=== PATIENT | female | born 1955 | race Caucasian/White ===

== ENCOUNTER 2017-01-26 09:30 | Emergency (ER) | payer OTHER ==
[~2017-01-26] VITALS: Ht 170.2 cm; Wt 63.5 kg
[~2017-01-26 09:30] MED LIST: LANS15TA4 PO; OMEP20TA68 PO; VENL75CA56 PO; [UNRECOGNIZED DRUG - OTHER] PO
[2017-01-26 09:35] VITALS: BP 131/84
--- NOTE | 2017-01-26 09:51 | NUR ---
PER PATIENT DOES NOT WANT TO BE SEEN ANYMORE, PT STATES FEELING RELIEF AND DENIES CHEST PAIN AT THIS TIME. DR LOYD AWARE. PT MADE AWARE RISKS AND CONSEQUENCES FOR LEAVING BEFORE SEEING MD. PT VERBALIZED UNDERSTANDING AND LEFT VIA PRIVATE CAR. AMBULATORY WITH STEADY GAIT. VSS.
== END 2017-01-26 10:02 | disposition left against medical advice (07) ==
LOC: ER 09:31
DX: Z53.21 Procedure and treatment not carried out due to patient leaving prior to being seen by health care provider (principal)

== ENCOUNTER 2017-02-23 17:23 | Inpatient (IN) | payer OTHER ==
[~2017-02-23] VITALS: Ht 170.2 cm; Wt 66.7 kg
--- NOTE | 2017-02-23 17:45 | NUR ---
BIB SELF, CC: BILATERAL ABDOMINAL PAIN CRAMPING, S/P OVARIAN CYST REMOVAL LAST WEDNESDAY. ALSO REPORTS OF N/V AND ON AND OFF FEVER. VSS. PT [id number]. SEEN BY MD FOR EVAL. SAFETY AND COMFORT MEASURES PROVIDED. WILL MONITOR.
--- NOTE | 2017-02-23 18:20 | NUR ---
IV ACCESS STARTED. PT MEDICATED ORDERED.
[2017-02-23] MEDS ORDERED: IV SET PRIMARY 1 EA INFUS.SET MC ONE (18:22)
[2017-02-23] MEDS ORDERED: ONDANSETRON HCL/PF 4 MG/2 ML VIAL ONE (18:22)
[2017-02-23] MEDS ORDERED: IV NS 0.9% 1,000 ML ONE (18:22)
[2017-02-23] MEDS ORDERED: MORPHINE SULFATE INJ 4 MG/ML DISP.SYRIN ONE (18:22)
[2017-02-23 18:29] LABS: BASOPHILS # (AUTO) 0.1 /CMM (0.0-0.2); BASOPHILS % (AUTO) 0.5 % (0.0-2.0); EOSINOPHILS # (AUTO) 0.2 /CMM (0.0-0.7); EOSINOPHILS % (AUTO) 2.1 % (0.0-6.0); HEMATOCRIT 37 % (33-45); HEMOGLOBIN 12.5 g/dL (11.5-14.8); LYMPHOCYTES # (AUTO) 1.7 /CMM (0.8-4.8); LYMPHOCYTES % (AUTO) 14.7 % (20.0-44.0); MEAN CORPUSCULAR HEMOGLOBIN 32 PG (26.0-33.0); MEAN CORPUSCULAR HGB CONC 34 g/dl (31.0-36.0); MEAN CORPUSCULAR VOLUME 94 fL (82-100); MONOCYTES # (AUTO) 1.4 /CMM (0.1-1.30); MONOCYTES % (AUTO) 12.2 % (2.0-12.0); NEUTROPHILS % (AUTO) 70.5 % (43.0-81.0); PLATELET COUNT (AUTO) 258 /CMM (150-450); RDW COEFFICIENT OF VARIATION 12.2 (11.5-15.0); RED BLOOD CELL COUNT(AUTO) 3.97 MIL/uL (4.0-5.2); WHITE BLOOD COUNT (AUTO) 11.4 K/uL (4.3-11.0)
[2017-02-23] MEDS: MORPHINE SULFATE INJ 2 MG/ML DISP.SYRIN IV ONE ×2 (18:30→19:11)
[2017-02-23] MEDS ORDERED: PIPERACILLIN /TAZOBACTAM 3.375 G in IV D5W 50 ML IV ONE (18:30)
[2017-02-23] MEDS ORDERED: IV NS 0.9% 1,000 ML BAG IV ONE (18:30)
[2017-02-23] MEDS ORDERED: ONDANSETRON HCL/PF 4 MG/2 ML VIAL IVP ONE (18:30)
[2017-02-23] MEDS ORDERED: KETOROLAC TROMETHAMINE INJ 30 MG/ML VIAL ONE (18:35)
[2017-02-23 18:41] LABS: CALCIUM, SERUM 8.4 mg/dL (8.5-10.1); CREATININE 0.8 mg/dL (0.6-1.3); POTASSIUM 4.4 mmol/L (3.5-5.1)
--- NOTE | 2017-02-23 18:45 | NUR ---
PT TAKEN TO CT.
[2017-02-23 18:47] LABS: ALBUMIN 3.1 g/dL (3.4-5.0); BILIRUBIN,DIRECT 0.1 mg/dL (0.0-0.2); BILIRUBIN,TOTAL 0.6 mg/dL (0.2-1.0); TOTAL PROTEIN, SERUM 7.2 g/dL (6.4-8.2)
[2017-02-23] MEDS ORDERED: IV NS 0.9% 250 ML IV ONE (18:47)
[2017-02-23] MEDS ORDERED: IOHEXOL-300 100 ML VIAL IV ONE (18:47)
[2017-02-23] MEDS ORDERED: CT SWABBABLE VALVE TRANS SET 1 EA INFUS.SET MC ONE (18:47)
[2017-02-23 19:19] LABS: APPEARANCE,URINE Clear (CLEAR); BILIRUBIN,URINE Negative (NEGATIVE); BLOOD, URINE Trace-intact Ery/uL (NEGATIVE); COLOR,URINE Yellow (YELLOW); KETONES,URINE Negative (NEGATIVE); LEUKOCYTE ESTERASE ,URINE Negative (NEGATIVE); NITRITE, URINE Negative (NEGATIVE); PROTEIN,URINE Negative (NEGATIVE); UGLUCOSE Negative (NEGATIVE); UROBILINOGEN,URINE 0.2 EU/dL (0.2)
[2017-02-23 19:43] LABS: BACTERIA,URINE None seen /HPF (None Seen); MUCUS,URINE Few /LPF (None Seen); SQUAMOUS EPITHELIAL CELL,UR Few /HPF (None Seen); WBC,URINE NONE SEEN /HPF (0-3)
--- NOTE | 2017-02-23 19:43 | NUR ---
CALLED (BELL RINGER SURGEON), TRANSFERRED CALL TO DR. LUCAS
--- NOTE | 2017-02-23 20:00 | NUR ---
ITZEL YO, SARA TAFOYA NP GRANULATOR MACHINE OPERATOR
--- NOTE | 2017-02-23 20:00 | NUR ---
CALLED NURSING SUP. FOR [facility] BED
--- NOTE | 2017-02-23 20:05 | NUR ---
[facility] CALLED BACK, INFORMED ME BRAVO GARSIA MONITOR AND STORAGE BIN TENDER IS CHIEF RECORDIST
--- NOTE | 2017-02-23 21:01 | NUR ---
REPORT GIVEN TO DERRICK WORRELL FOR VIRGILIO
--- NOTE | 2017-02-23 21:05 | NUR ---
PT TRASNPORTED TO [facility] BED VIA WHEELCHAIR BY EMT
[2017-02-23 21:15] VITALS: BP 115/71
--- NOTE | 2017-02-23 21:30 | NUR ---
MS RN NOTE: RECEIVE PATIENT FROM ER, NO ACUTE DISTRESS NOTED. BREATHING EVEN AND UNLABORED, NO SOB NOTED. IV TO RFA IN PLACE. ORIENTED PATIENT TO ROOM AND USE OF CALL LIGHT. BED LOCKED AND IN LOWEST POSITION, CALL LIGHT IN REACH. WILL CONTINUE TO MONITOR.
[2017-02-23] MEDS ORDERED: IV NS 0.9% 1,000 ML IV PRN (21:46)
[2017-02-23] MEDS ORDERED: HYDROCODONE/APAP 5/325MG 1 EACH TABLET PO PRN (22:00)
[2017-02-23] MEDS ORDERED: Z GUARD REMEDY 2 OZ OINT TP PRN (22:00)
[2017-02-23] MEDS ORDERED: MORPHINE SULFATE INJ 2 MG/ML DISP.SYRIN IV PRN (22:00)
[2017-02-23] MEDS ORDERED: ZOLPIDEM TARTRATE 5 MG TABLET PO PRN (22:00)
[2017-02-23] MEDS ORDERED: ACETAMINOPHEN 325 MG TABLET PO PRN (22:00)
[2017-02-23] MEDS ORDERED: MAG HYDROX/AL HYDROX/SIMETH 30 ML UDC PO PRN (22:00)
[2017-02-23] MEDS ORDERED: ONDANSETRON HCL/PF 4 MG/2 ML VIAL IVP PRN (22:00)
[2017-02-23] MEDS ORDERED: MAGNESIUM HYDROXIDE 30 ML UDC PO PRN (22:00)
[2017-02-24] MEDS ORDERED: IV SET PRIMARY PUMP SET 1 EA INFUS.SET MC ONE (00:17)
[2017-02-24] MEDS ORDERED: SECONDARY IV SET 1 EA INFUS.SET MC ONE (00:17)
[2017-02-24] MEDS ORDERED: PIPERACILLIN /TAZOBACTAM 3.375 G VIAL IV ONE ×2 (00:17→06:35)
[2017-02-24] MEDS ORDERED: IV D5W 50 ML IV ONE ×2 (00:17→06:35)
[2017-02-24] MEDS ORDERED: IV NS 0.9% 1,000 ML ONE (00:18)
[2017-02-24] MEDS: PIPERACILLIN /TAZOBACTAM 3.375 G in IV D5W 50 ML IV SCH ×3 (00:29→11:43)
[2017-02-24] MEDS ORDERED: ACETAMINOPHEN 325 MG TABLET ONE (00:30)
--- NOTE | 2017-02-24 00:30 | NUR ---
MS RN NOTE: PATIENT SEEN BY DR. GORMAN, WITH NEW ORDERS TO CONTINUE SAME DOSE OF ZOSYN 3.375 GRAMS GIVEN IN ER. ORDER NOTED AND CARRIED OUT. WILL CONTINUE TO MONITOR.
[2017-02-24] MEDS ORDERED: EMTR1TAB17 PO (01:07)
[2017-02-24] MEDS ORDERED: DOLU50TA PO (01:07)
[2017-02-24] MEDS ORDERED: HYDROCODONE/APAP 5/325MG 1 EACH TABLET ONE (04:15)
--- NOTE | 2017-02-24 04:25 | NUR ---
MS RN NOTE: PATIENT COMPLAINS OF HEADACHE 6/10, NORCO 5/325MG ORAL GIVEN PER MD ORDER. WILL CONTINUE TO MONITOR.
--- NOTE | 2017-02-24 06:05 | NUR ---
MS RN NOTE: PATIENT RESTING IN BED, NO ACUTE DISTRESS NOTED. BREATHING EVEN AND UNLABORED, NO SOB NOTED. IV TO RFA IN PLACE, INFUSING NS AT 75 ML/HR. BED LOCKED AND IN LOWEST POSITION, CALL LIGHT IN REACH. WILL ENDORSE TO DAY NURSE TO CONTINUE WITH PLAN OF CARE.
[2017-02-24 06:13] LABS: BASOPHILS % (AUTO) 0.2 % (0.0-2.0); EOSINOPHILS # (AUTO) 0.3 /CMM (0.0-0.7); EOSINOPHILS % (AUTO) 3.5 % (0.0-6.0); HEMATOCRIT 34 % (33-45); HEMOGLOBIN 11.3 g/dL (11.5-14.8); LYMPHOCYTES % (AUTO) 11.1 % (20.0-44.0); MEAN CORPUSCULAR HEMOGLOBIN 31 PG (26.0-33.0); MEAN CORPUSCULAR HGB CONC 34 g/dl (31.0-36.0); MEAN CORPUSCULAR VOLUME 94 fL (82-100); MONOCYTES # (AUTO) 1.5 /CMM (0.1-1.30); MONOCYTES % (AUTO) 15.9 % (2.0-12.0); NEUTROPHILS # (AUTO) 6.5 /CMM (1.8-8.9); NEUTROPHILS % (AUTO) 69.3 % (43.0-81.0); PLATELET COUNT (AUTO) 243 /CMM (150-450); RDW COEFFICIENT OF VARIATION 13.3 (11.5-15.0); RED BLOOD CELL COUNT(AUTO) 3.59 MIL/uL (4.0-5.2); WHITE BLOOD COUNT (AUTO) 9.4 K/uL (4.3-11.0)
[2017-02-24 06:38] LABS: ALBUMIN 2.5 g/dL (3.4-5.0); BILIRUBIN,DIRECT 0.1 mg/dL (0.0-0.2); BILIRUBIN,TOTAL 0.4 mg/dL (0.2-1.0); CREATININE 0.8 mg/dL (0.6-1.3); MAGNESIUM 2.2 mg/dL (1.8-2.4); PHOSPHORUS 2.7 mg/dL (2.5-4.9); POTASSIUM 3.7 mmol/L (3.5-5.1); TOTAL PROTEIN, SERUM 6.1 g/dL (6.4-8.2)
[2017-02-24 06:54] LABS: EOSINOPHILS % (MANUAL) 4 % (0-4); LYMPHOCYTES % (MANUAL) 3 % (16-48); MONOCYTES % (MANUAL) 14 % (0-11.0); NEUTROPHILS % (MANUAL) 79 (42-76)
[2017-02-24] MEDS: PANTOPRAZOLE 40 MG TABLET.DR PO SCH ×2 (07:30→08:02)
--- NOTE | 2017-02-24 08:03 | NUR ---
RN NOTES PATIENT ASKS TO HAVE EFFEXOR LATER IN THE DAY AFTER LUNCH. WILL CALL PHARMACY AND ASK THEM TO RESCHEDULE THE MED. PATIENT ALSO HAS HOME MEDS AT BEDSIDE, BUT WILL NOT ALLOW TO HAVE THEM TAKEN TO THE PHARMACY. EXPLAINED THE POLICY OF HOME MEDICATIONS, PATIENT STATES UNDERSTANDING AND STATES SHE WILL HAVE HER DAUGHTER TAKE THE MEDICATIONS HOME LATER THAT SHE WILL NOT TAKE ANYTHING WITHOUT LETTING HOSPITAL STAFF KNOW.
[2017-02-24] MEDS ORDERED: VENLAFAXINE XR 75 MG CAP.SR.24H PO SCH ×2 (09:00→13:00)
[2017-02-24 09:34] VITALS: BP 129/74
--- NOTE | 2017-02-24 10:34 | NUR ---
RN NOTES CALLED DR HILL TO INFORM MD OF PATIENT VOMITING AND CT RESULTS. MD ORDERED PROTONIX IV, REGLAN PRN AND TO HAVE THE PATIENT START A CLEAR LIQUID DIET. ORDERS PLACED.
[2017-02-24] MEDS ORDERED: PANTOPRAZOLE 40 MG VIAL IV SCH (11:00)
[2017-02-24] MEDS ORDERED: METOCLOPRAMIDE HCL 10 MG/2 ML VIAL IV PRN (11:00)
--- NOTE | 2017-02-24 13:01 | NUR ---
MS RN NOTES PATIENT DOES NOT EFFEXOR AT THIS TIME. PATIENT STATES THAT SHE IS FEELING NAUSEOUS AND IS AFRAID SHE WILL THROW UP. WILL HOLD MED UNTIL PATIENT IS ABLE TO TAKE IT.
--- NOTE | 2017-02-24 15:33 | NUR ---
MS ANAID NOTES INFORMED DR ZAIDI THAT PATIENT TOLERATED LUNCH AND DOES NOT COMPLAIN OF NAUSEA AND HAS NOT VOMITED. PATIENT ALSO STATES THAT SHE WOULD LIKE TO GO HOME. DR ZAIDI STATES TO PLACE THE ORDER FOR DISCHARGE AND HE WILL WRITE NOTES LATER. WILL FOLLOW ORDERS. Addendum: 02/24/17 at 1537 by DYAN PARKINSON RN DR ZAIDI STATES NO NEW MEDICATIONS OR CHANGES TO HOME MEDS
--- NOTE | 2017-02-24 16:34 | NUR ---
MS GUEST SPECIALIST NOTES DISCHARGE INSTRUCTIONS GIVEN TO THE PATIENT AND ABLE TO UNDERSTAND. ALL PAPERWORK SIGNED, BELONGINGS ACCOUNTED FOR, AND MEDICATIONS RETURNED. PICTURES OF SKIN NOT NEEDED PATIENT SKIN IS INTACT. IV DISCONNECTED AND PRESSURE APPLIED. NO BLEEDING NOTED AT THE SITE. FLU AND PNEUMONIA VACCINES NOT GIVEN PATIENT IS LESS THAN 65 YEARS OLD AND OUT OF [place]. PATIENT LEFT IN STABLE CONDITION, AMBULATORY, VIA PRIVATE CAR TO HOME. NO SOB OR DISTRESS AT THIS TIME. PATIENT DENIES PAIN.
== END 2017-02-24 16:30 | disposition home or self-care (01) | DRG 254 ==
LOC: ER 17:24 → MEDSG2 20:50
PROVIDERS: ADMIT Internal Medicine; ATTEND Internal Medicine
DX: K37 Unspecified appendicitis (principal); E44.0 Moderate protein-calorie malnutrition; E88.09 Other disorders of plasma-protein metabolism, not elsewhere classified; R10.9 Unspecified abdominal pain; Z68.23 Body mass index [BMI] 23.0-23.9, adult; D72.829 Elevated white blood cell count, unspecified; K21.9 Gastro-esophageal reflux disease without esophagitis; Z90.710 Acquired absence of both cervix and uterus; Z79.899 Other long term (current) drug therapy; Z98.890 Other specified postprocedural states
CPT/HCPCS: 36415; 80048-TC; 80076-TC; 81000-TC; 83690-TC; 83735-TC; 84100-TC; 85025-TC; 87081-TC; A4606; C9113; J1885; J2270; J2405; J2543; J2765; J7030; J7050; J7060; Q9967; Z7610

== ENCOUNTER 2017-10-15 19:23 | Emergency (ER) | payer OTHER ==
[~2017-10-15] VITALS: Ht 170.2 cm; Wt 65.8 kg
[~2017-10-15 19:23] MED LIST changes: +DOLU50TA PO; +EMTR1TAB17 PO; -LANS15TA4 PO; +LANS15TA5 PO; +OMEP20TA5 PO; -OMEP20TA68 PO
[2017-10-15 20:24] VITALS: BP 103/72
--- NOTE | 2017-10-15 23:00 | NUR ---
CALLED X5; NO ANSWER
--- NOTE | 2017-10-15 23:43 | NUR ---
CHARLES FROM [facility]
== END 2017-10-15 23:45 | disposition left against medical advice (07) ==
LOC: ER 19:24
DX: Z53.21 Procedure and treatment not carried out due to patient leaving prior to being seen by health care provider (principal)
CPT/HCPCS: A4606; Z7610